=== PATIENT | female | born 1950 | race Caucasian/White ===

== ENCOUNTER 2017-03-19 00:55 | Emergency (ER) | payer SELFPAY ==
[~2017-03-19] VITALS: Ht 157.5 cm; Wt 47.6 kg
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
--- NOTE | 2017-03-19 01:37 | NUR ---
pt asleep, no acute distress noted, resp even and unlabored. call light within reach.
[2017-03-19 01:48] LABS: BASOPHILS % (AUTO) 0.3 % (0.0-2.0); EOSINOPHILS # (AUTO) 0.1 /CMM (0.0-0.7); EOSINOPHILS % (AUTO) 1.3 % (0.0-6.0); HEMATOCRIT 48 % (33-45); HEMOGLOBIN 15.6 g/dL (11.5-14.8); LYMPHOCYTES # (AUTO) 4.3 /CMM (0.8-4.8); MEAN CORPUSCULAR HEMOGLOBIN 31 PG (26.0-33.0); MEAN CORPUSCULAR HGB CONC 33 g/dl (31.0-36.0); MEAN CORPUSCULAR VOLUME 95 fL (82-100); MONOCYTES # (AUTO) 0.7 /CMM (0.1-1.30); MONOCYTES % (AUTO) 7.7 % (2.0-12.0); NEUTROPHILS # (AUTO) 4.2 /CMM (1.8-8.9); NEUTROPHILS % (AUTO) 44.7 % (43.0-81.0); PLATELET COUNT (AUTO) 137 /CMM (150-450); RDW COEFFICIENT OF VARIATION 13.9 (11.5-15.0); RED BLOOD CELL COUNT(AUTO) 5.02 MIL/uL (4.0-5.2); WHITE BLOOD COUNT (AUTO) 9.4 K/uL (4.3-11.0)
[2017-03-19] MEDS ORDERED: HALOPERIDOL LACTATE INJ 5 MG/ML VIAL ONE (01:52)
--- NOTE | 2017-03-19 01:57 | NUR ---
pt screaming, cursing, uncooperative. er md aware with orders received. will medicate pt.
[2017-03-19 01:59] LABS: CALCIUM, SERUM 8.9 mg/dL (8.5-10.1); CARBON DIOXIDE 24 mmol/L (21-32); CHLORIDE 109 mmol/L (98-107); CREATININE 0.7 mg/dL (0.6-1.3); GLUCOSE 95 mg/dL (74-106); POTASSIUM 3.8 mmol/L (3.5-5.1); SODIUM SERUM 146 mmol/L (136-145); UREA NITROGEN, BLOOD 15 mg/dL (7-18)
[2017-03-19 02:08] LABS: TROPONIN I < 0.017 ng/mL (0.00-0.056)
[2017-03-19 02:16] LABS: ALANINE AMINOTRANSFERASE 118 U/L (12-78); ALBUMIN 4.2 g/dL (3.4-5.0); ALCOHOL, BLOOD 366 mg/dL (0-0); ALKALINE PHOSPHATASE 102 U/L (46-116); ASPARTATE AMINOTRANSFERASE 107 U/L (15-37); BILIRUBIN,DIRECT 0.1 mg/dL (0.0-0.2); BILIRUBIN,TOTAL 0.3 mg/dL (0.2-1.0); TOTAL PROTEIN, SERUM 9.7 g/dL (6.4-8.2)
[2017-03-19] MEDS ORDERED: LORAZEPAM INJ 2 MG/ML VIAL ONE (02:55)
[2017-03-19] MEDS ORDERED: LORAZEPAM INJ 2 MG/ML VIAL IM ONE (03:00)
[2017-03-19] MEDS ORDERED: HALOPERIDOL LACTATE INJ 5 MG/ML VIAL IM ONE (03:00)
--- NOTE | 2017-03-19 03:58 | NUR ---
Kyle combs in ED - 03/19/17 at 0359 by SUBHASH pt back from radiology. pending ct head result.
--- NOTE | 2017-03-19 03:58 | NUR ---
pt transported to radiology for ct head.
--- NOTE | 2017-03-19 04:13 | NUR ---
pt back from radiology. pending ct head result.
--- NOTE | 2017-03-19 06:10 | NUR ---
pt asleep, no acute distress noted, resp even and unlabored. call light within reach.
--- NOTE | 2017-03-19 07:15 | NUR ---
RECEIVED REPORT FOR JENNIFER. PATIENT SLEEPING AT THIS TIME IN STABLE CONDITION.
--- NOTE | 2017-03-19 11:45 | NUR ---
PATIENT AMBULATING TO BATHROOM WITH STABLE GAIT AND BALANCE. AWARE.
[2017-03-19 11:46] VITALS: BP 124/88
--- NOTE | 2017-03-19 12:05 | NUR ---
Patient discharged to home in stable condition. Written and verbal after care instructions given. Patient verbalizes understanding of instruction.
== END 2017-03-19 12:05 | disposition home or self-care (01) ==
LOC: ER 00:58
DX: F10.129 Alcohol abuse with intoxication, unspecified (principal); E87.0 Hyperosmolality and hypernatremia; R51 Headache; Z88.2 Allergy status to sulfonamides
CPT/HCPCS: 36415; 70450-TC; 71010-TC; 80048-TC; 80076-TC; 82962-TC; 84484-TC; 85025-TC; A4606; G0480; J1630; J2060; Z7610